=== PATIENT | male | born 1980 | race Caucasian/White ===

== ENCOUNTER 2022-10-20 08:01 | Outpatient (REF) | payer OTHER, SELFPAY ==
[2022-10-20 08:14] LABS: MANUAL DIFF FLAG NO
[2022-10-20 08:39] LABS: Basophils Percent Auto 0.4 % (0-2); Eosinophils Absolute Auto 0.2 X10*3/uL (0.0-0.4); Eosinophils Percent Auto 1.7 % (0-4); Hematocrit 46.4 % (42.0-52.0); Hemoglobin 15.7 g/dl (14.0-18.0); Imm Gran Abs Auto 0.04 X10*3/uL (0.00-0.03); Imm Gran Pct Auto 0.4 % (0.0-0.4); Lymphocytes Absolute Auto 3.2 X10*3/uL (1.2-4.9); Lymphocytes Percent Auto 32.4 % (20-40); Mean Corpuscular HGB Conc 33.8 g/dl (31.0-36.0); Mean Corpuscular Hemoglobin 28.4 pg (27.0-33.0); Mean Corpuscular Volume 84.1 fL (80.0-98.0); Mean Platelet Volume 9.3 fL (9.4-12.4); Monocytes Absolute Auto 0.5 X10*3/uL (0.1-1.2); Monocytes Percent Auto 4.9 % (2-11); Neutrophils Percent Auto 60.2 % (45-73); Platelet Count 410 X10*3/uL (160-400); Red Blood Count 5.52 X10*6/uL (4.60-5.80); Red Cell Distribution Width 12.6 % (11.0-16.0)
[2022-10-20 08:51] LABS: Hemoglobin A1c % > 14.0 %
[2022-10-20 09:26] LABS: TSH reflex Free T4 1.66 uIU/mL (0.32-4.0); Vitamin D 25-OH Total 17.2 ng/mL (>30)
[2022-10-20 09:34] LABS: Alanine Aminotransferase 27 U/L (0-40); Albumin Level 4.5 g/dL (3.5-5.0); Alkaline Phosphatase 143 U/L (39-117); Anion Gap 20 (12-20); Aspartate Amino Transferase 24 U/L (5-37); Bilirubin Total 0.5 mg/dL (0.0-1.0); Blood Urea Nitrogen 20 mg/dL (9-16); Calcium 9.6 mg/dL (8.4-10.2); Carbon Dioxide 23 mmol/L (22-29); Chloride 97 mmol/L (96-108); Cholesterol 250 mg/dL; Estimated Glomerular Filt Rate > 60; Glucose Random 402 mg/dL (60-115); HDL Cholesterol 28 mg/dL; Potassium 4.7 mmol/L (3.3-5.1); Sodium 135 mmol/L (135-145); Total Protein 7.5 g/dL (6.5-8.0); Triglycerides 609 mg/dL
== END 2022-10-20 08:02 | disposition home or self-care (01) ==
LOC: HO.LAB 08:01
PROVIDERS: PCP Internal Medicine; Visit Provider Nurse Practitioner Family
DX: Z13.21 Encounter for screening for nutritional disorder (principal); Z13.29 Encounter for screening for other suspected endocrine disorder; Z13.0 Encounter for screening for diseases of the blood and blood-forming organs and certain disorders involving the immune mechanism; Z13.220 Encounter for screening for lipoid disorders; E55.9 Vitamin D deficiency, unspecified; E11.9 Type 2 diabetes mellitus without complications
CPT/HCPCS: 36415; 80053; 80061; 82306; 83036; 84443; 85025

== ENCOUNTER 2022-10-20 10:34 | Emergency (ER) | payer OTHER, SELFPAY ==
[2022-10-20 10:48] VITALS: BP 118/81; PULSE 90; RESP 18; TEMP 36.3; O2SAT 96; BMI 26.1
[2022-10-20 11:39] LABS: Glucose, Whole Blood 541 mg/dL (60-115)
[2022-10-20 11:48] LABS: Appearance Urine Clear; Color Urine Yellow; Glucose Urine UA >=1000 mg/dL (Negative); Leukocyte Esterase Urine Negative (Negative); Nitrite Urine Negative (Negative); PH 6.5 (5.0-9.0); Specific Gravity - Urine >= 1.030 (1.005-1.025); UMIC TRIGGER UACC YES; Urine Blood Negative (Negative); Urine Ketones 15 mg/dL (Negative); Urine Protein Negative (Neg-Trace)
[2022-10-20 12:07] LABS: Bacteria Urine None Seen (None Seen); Hyaline Casts Urine 0-2 /LPF (0-2); RBC Urine 0-2 /HPF (0-2); Squamous Epithelial Cell Urine 0-2 /HPF (0-2); WBC Urine 0-5 /HPF (0-5)
--- NOTE | 2022-10-20 13:31 | ED.GENADULT ---
HPI - General Adult General Chief complaint: General Medical Stated complaint: HBS Time Seen by Provider: 10/20/22 13:31 Source: patient Mode of arrival: ambulatory Limitations: no limitations History of Present Illness HPI narrative: Patient is a 42 year old assigned male at with no reported medical history presenting to the emergency department today by his PCP for evaluation of elevated blood sugar. Patient states that he was seen by his PCP who checked his sugar and said it was high and he recommended the patient come to the hospital to be evaluated. Patient denies any dizziness, lightheadedness, abdominal pain, nausea, vomiting, fever, chills, blurry vision, double vision, loss of vision, chest pain, difficulty breathing, shortness of breath, back pain, night sweats, pain with urination, increased urinary frequency, increased urinary urgency, blood in his urine or stool, syncope or a near syncopal episode, recent trauma or falls, bowel incontinence, bladder incontinence, bowel retention, bladder retention, or any other complaints at this time. Severity: mild Relieving factors: none Exacerbating factors: none Associated symptoms: denies other symptoms Treatments prior to arrival: none Related Data Previous Rx's Medication Instructions Recorded blood sugar diagnostic #100 ea 10/20/22 blood-glucose meter #1 ea 10/20/22 lancets (Accu-Chek Softclix #100 ea 10/20/22 Lancets) metformin 500 mg tablet 500 mg PO DAILY #30 tabs 10/20/22 Allergies Allergy/AdvReac Type Severity Reaction Status Date / Time No Known Allergies Allergy Verified 10/20/22 08:04 [No Known Allergies*] Review of Systems Constitutional: Constitutional: Reports no additional constitutional complaints, Denies chills, Denies fever(s) and Denies night sweats Eyes: Eyes: Reports no additional eye complaints, Denies blurry vision, Denies change in vision, Denies diplopia, Denies eye discharge, Denies loss of vision and Denies eye pain ENT: Denies dizziness Cardiovascular: Cardiovascular: Reports no additional cardiovascular complaints, Denies chest pain, Denies lightheadedness, Denies Loss of Consciousness and Denies dyspnea Respiratory: Respiratory: Reports no additional respiratory complaints and Denies dyspnea Gastrointestinal: Gastrointestinal: Reports no additional gastrointestinal complaints, Denies abdominal pain, Denies melena, Denies hematochezia, Denies change in bowel habits and Denies change in stool character Genitourinary: Genitourinary: Reports no additional male genitourinary complaints, Denies hematuria, Denies oliguria, Denies difficulty urinating, Denies dysuria, Denies urinary frequency, Denies urinary hesitancy, Denies urinary incontinence and Denies urinary urgency Musculoskeletal: Musculoskeletal: Reports no additional musculoskeletal complaints, Denies numbness and Denies tingling Neurologic: Denies dizziness, Denies loss of vision, Denies numbness and Denies tingling Psychiatric: Psychiatric: Reports no additional psychiatric complaints Endocrine: Endocrine: Reports no additional endocrine complaints Hematologic/Lymphatic: Hematologic/Lymphatic: Reports no additional hematologic/lymphatic complaints Allergic/Immunologic: Allergic/Immunologic: Reports no additional allergic/immunologic complaints PMFSH Past Medical History Attestation statement: The following information was validated with the patient. Source: old records reviewed, obtained from family (patient's ) and nursing notes reviewed Medical History Diabetes Right inguinal hernia Vitamin D deficiency Weight loss Surgical History H/O umbilical hernia repair History of hernia surgery Family History Family History Mother Asthma Diabetes Father Cancer Diabetes Social History Social History Housing: Apartment Alcohol intake: current Alcohol intake frequency: holidays/special occasions only Alcohol type: beer Patient Tobacco Use Status: Former Tobacco user Tobacco use type: Cigarette e-Cigarette/Vaping Use: Never Used Second Hand Smoke Exposure: No Substance Use Type: Marijuana Advance Directives: No Advance Directives Information Provided: Yes service: No Current occupational status: employed Current occupational exposures/hazards: No Cognitive needs: No Hearing needs: No Vision needs: Yes Physical Exam ED Vital Signs: Vital Signs - 24 hr 10/20/22 10:48 10/20/22 14:57 Temperature 97.4 F 98.7 F Pulse Rate 90 86 Respiratory Rate 18 13 Blood Pressure 118/81 125/82 Pulse Oximetry 96 96 Oxygen Delivery Method Room Air Room Air BMI result Body Mass Index 26.1 Const General: cooperative, no acute distress, alert and awake Nutritional Appearance: well nourished Orientation/consciousness: patient oriented x3 Limitations: no limitations HENMT Head: Yes normal to inspection and Yes atraumatic Ears: hearing grossly normal bilaterally and external ears normal General nose exam: Normal external nose present, no nasal discharge noted and no epistaxis Face and sinus: Yes normal facial exam, No abrasion and No laceration Mouth: Normal oral and palatal mucosa present, no drooling and no muffled voice Eyes General: appearance normal, both eyes and all related structures Periorbital: periorbital findings normal Eyelids: Yes eyelids normal Conjunctivae: conjunctivae normal Pupils: Equal, round and reactive pupils present EOM: EOMs intact bilaterally Neck Neck: Yes normal visual inspection, Yes full ROM and Yes no lymphadenopathy Chest Chest palpation & inspection: normal inspection of the chest Resp Effort & Inspection: normal respiratory effort and able to speak in complete sentences Auscultation: clear to auscultation bilaterally Cardio Rate: regular rate Rhythm: regular rhythm GI Inspection: Yes normal to inspection Palpation (GI): Soft to palpation, not firm, nontender, no guarding and not rigid Neuro General: patient oriented x3 and moves all extremities Cranial nerves: Yes Equal, round and reactive pupils present Cognition (Neuro): normal cognition Motor exam (neuro): 5/5 motor strength present throughout Sensory Exam: Normal double simultaneous stimulation for sensation Coordination: [id number] test normal Extrem General: Yes normal to inspection, Yes full ROM and Yes capillary refill normal Psych Appearance: grossly normal Mental Status: mental status grossly normal Affect: normal affect Attitude: cooperative Thought process: Normal thought process present Thought content: Normal thought content present Insight: Good insight present (Psych) Medications Administered Discontinued Medications Generic Name Dose Route Start Last Admin Trade Name Claudette PRN Reason Stop Dose Admin Sodium Chloride 1,000 mls @ 999 mls/hr 10/20/22 11:00 10/20/22 14:49 Ns IVCONT 10/20/22 12:00 Infused .Q1H1M EMILY Infusion Sodium Chloride 1,000 mls @ 999 mls/hr 10/20/22 13:45 10/20/22 15:39 Ns IV 10/20/22 14:45 Infused .Q1H1M EMILY Infusion Insulin Human Regular 5 unit 10/20/22 15:34 10/20/22 15:44 Insulin Regular, Human 100 Unit/Ml 3 Ml Vial IVPUSH 10/20/22 15:35 5 unit ONCE ONE Administration Medical Decision Making Medical Decision Making [facility] Narrative: Patient is a 42 year old assigned male at with no reported medical history presenting to the emergency department today for evaluation of elevated glucose. Patient's physical exam was unremarkable. Patient's blood work showed an elevated blood sugar of 541. Patient's urine showed no acute process. Patient was given 2 liters of fluid and 5 units of insulin which brought his sugar down to 321. Patient's clinical presentation is consistent with new onset diabetes. Patient is not in DKA. I explained my physical exam findings as well as all test results to the patient and the patient's . I answered all questions asked by the patient and the patient's . I stressed the importance of the patient taking his medication as prescribed. I stressed the importance of the patient following up with his primary care provider and an housekeeping and laundry team leader. I stressed the importance of the patient returning to the emergency department immediately if his symptoms were to worsen or if he were to develop any dizziness, shortness of breath, difficulty breathing, chest pain, blurry vision, loss of vision, nausea, vomiting, abdominal pain, fever, chills, back pain, or any other complaints. Patient and the patient's verbalized agreement and understanding with this treatment plan and discharge. Differential Diagnosis Differential Diagnoses: The differential diagnosis associated with the presentation includes diabetes Lab Data [facility] Lab Attestation statement: I reviewed the patient's lab results. Labs: Lab Results 10/20/22 10/20/22 10/20/22 Range/Units 11:33 11:39 15:31 POC Glucose 541 H* 433 H* (60-115) mg/dL Urine Color Yellow Urine Appearance Clear Urine pH 6.5 (5.0-9.0) Ur Specific [place] >= 1.030 H (1.005-1.025) Urine Protein Negative (Neg-Trace) mg/dL Urine Glucose (UA) >=1000 H (Negative) mg/dL Urine Ketones 15 (Negative) mg/dL Urine Blood Negative (Negative) Urine Nitrite Negative (Negative) Ur Leukocyte Esterase Negative (Negative) Urine RBC 0-2 (0-2) /HPF Urine WBC 0-5 (0-5) /HPF Ur Squamous Epith Cells 0-2 (0-2) /HPF Urine Bacteria None Seen (None Seen) Hyaline Casts 0-2 (0-2) /LPF 10/20/22 Range/Units 16:26 POC Glucose 321 H (60-115) mg/dL Urine Color Urine Appearance Urine pH (5.0-9.0) Ur Specific [place] (1.005-1.025) Urine Protein (Neg-Trace) mg/dL Urine Glucose (UA) (Negative) mg/dL Urine Ketones (Negative) mg/dL Urine Blood (Negative) Urine Nitrite (Negative) Ur Leukocyte Esterase (Negative) Urine RBC (0-2) /HPF Urine WBC (0-5) /HPF Ur Squamous Epith Cells (0-2) /HPF Urine Bacteria (None Seen) Hyaline Casts (0-2) /LPF Independent Historian Clinical information obtained from an independent historian. History obtained from or confirmed by: Spouse () Critical Care Time Critical Care Time Critical Care Time: Yes Total Critical Care Time: 30 Attestation: I spent 30 minutes of Critical Care Time with this patient. This does not include time spent on separately reported billable procedures. Discharge Plan Discharge Clinical Impression: Diabetes Patient Disposition: Home, Self-Care Instructions: Type 2 Diabetes in Adults: New Diagnosis (ED), Type 2 Diabetes Management for Adults (ED) Additional Instructions: Follow up with your primary care provider. Return to the emergency department immediately if your symptoms worsen or if you develop any dizziness, shortness of breath, difficulty breathing, chest pain, blurry vision, loss of vision, nausea, vomiting, abdominal pain, fever, chills, back pain, or any other complaints. Prescriptions: New metformin 500 mg tablet 500 mg PO DAILY Qty: 30 0RF (DME) blood-glucose meter Kit See Rx Instructions .Route Qty: 1 0RF Rx Instructions: As directed (DME) blood sugar diagnostic Strip See Rx Instructions .Route Qty: 100 0RF Rx Instructions: As directed (DME) lancets [Accu-Chek Softclix Lancets] Misc See Rx Instructions .Route Qty: 100 0RF Rx Instructions: As directed Referrals: Joaquin Huang MD [Physician] - (Call to establish and follow up with an housekeeping and laundry team leader.) Kayli Lainez FNP [Primary Care Provider] - Stand Alone Forms: Work/School Release Interventions: ED Discharge Assessment Last Done: 10/20/22 17:04 Discharge Date/Time: 10/20/22 17:05 Print Language: Italian
[2022-10-20] MEDS: 0.9 % Sodium Chloride 1,000 ML 999 ML IVCONT (13:51)
--- NOTE | 2022-10-20 14:04 | PC.NURSE ---
patient alert, oriented x4. ambulating independently with strong steady gait. able to make needs known. call perry within reach. will CTM
[2022-10-20] MEDS: 0.9 % Sodium Chloride 1,000 ML 999 ML IV (14:49)
[2022-10-20 14:57] VITALS: BP 125/82; PULSE 86; RESP 13; TEMP 37.1; O2SAT 96
[2022-10-20 15:35] LABS: Glucose, Whole Blood 433 mg/dL (60-115)
[2022-10-20] MEDS: Insulin Regular, Human 100 UNIT/ML 3 ML VIAL IVPUSH (15:44)
[2022-10-20 16:30] LABS: Glucose, Whole Blood 321 mg/dL (60-115)
== END 2022-10-20 17:05 | disposition home or self-care (01) ==
PROVIDERS: Physician Assistant; Emergency Provider Emergency Medicine Emergency Medical Services; PCP Nurse Practitioner Family
DX: E11.9 Type 2 diabetes mellitus without complications (principal); Z87.891 Personal history of nicotine dependence; F12.90 Cannabis use, unspecified, uncomplicated
CPT/HCPCS: 81001; 82947; 96361; 96374; 99284

== ENCOUNTER 2022-11-04 08:50 | Outpatient (REF) | payer OTHER, SELFPAY ==
[2022-11-04 10:36] LABS: Hemoglobin A1c % > 14.0 %
[2022-11-04 11:26] LABS: Cholesterol 233 mg/dL; HDL Cholesterol 33 mg/dL; LDL Cholesterol Calculated 148 mg/dl; Triglycerides 261 mg/dL
[2022-11-04 11:29] LABS: Vitamin D 25-OH Total 20.1 ng/mL (>30)
== END 2022-11-04 08:51 | disposition home or self-care (01) ==
LOC: HO.LAB 08:50
PROVIDERS: Nurse Practitioner Family; Visit Provider Internal Medicine
DX: Z13.220 Encounter for screening for lipoid disorders (principal); E55.9 Vitamin D deficiency, unspecified; E11.9 Type 2 diabetes mellitus without complications
CPT/HCPCS: 36415; 80061; 82306; 83036

== ENCOUNTER → 2022-11-24 10:59 | Outpatient (BNVA) | payer OTHER, SELFPAY | PROVIDERS: PCP Internal Medicine; Visit Provider Dietitian, Registered | DX: E11.9 Type 2 diabetes mellitus without complications (principal); Z79.84 Long term (current) use of oral hypoglycemic drugs | CPT/HCPCS: 97802 ==

== ENCOUNTER → 2023-01-11 12:25 | Outpatient (BNVA) | payer OTHER, SELFPAY | PROVIDERS: PCP Internal Medicine; Visit Provider Internal Medicine Endocrinology, Diabetes & Metabolism | DX: E11.9 Type 2 diabetes mellitus without complications (principal); Z79.4 Long term (current) use of insulin | CPT/HCPCS: 82947; 99202 ==

== ENCOUNTER 2023-01-12 16:10 | Outpatient (REF) | payer OTHER, SELFPAY ==
[2023-01-12 17:19] LABS: Microalbum/Creatinine Ratio Ur 6.2 ug/mg cr
[2023-01-18 19:24] LABS: Glutamic acid decarboxylase Ab >250 IU/mL (<5)
== END 2023-01-12 16:11 | disposition home or self-care (01) ==
LOC: HO.LAB 16:10
PROVIDERS: PCP Internal Medicine; Visit Provider Internal Medicine Endocrinology, Diabetes & Metabolism
DX: E11.9 Type 2 diabetes mellitus without complications (principal)
CPT/HCPCS: 36415; 82043; 86341

== ENCOUNTER → 2023-01-18 09:18 | Outpatient (BNVA) | payer OTHER, SELFPAY | PROVIDERS: PCP Internal Medicine; Visit Provider Dietitian, Registered | DX: E11.9 Type 2 diabetes mellitus without complications (principal); Z71.3 Dietary counseling and surveillance | CPT/HCPCS: 97803 ==

== ENCOUNTER → 2023-01-28 15:19 | Outpatient (BNVA) | payer OTHER, SELFPAY | PROVIDERS: PCP Internal Medicine; Visit Provider Nurse Practitioner Family | DX: Z12.11 Encounter for screening for malignant neoplasm of colon (principal); Z86.010 Personal history of colon polyps; Z80.0 Family history of malignant neoplasm of digestive organs; Z79.4 Long term (current) use of insulin | CPT/HCPCS: 99202 ==

== ENCOUNTER → 2023-02-18 10:15 | Outpatient (BNVA) | payer OTHER, SELFPAY | PROVIDERS: PCP Internal Medicine; Referring Provider Nurse Practitioner Family; Visit Provider Surgery | DX: K40.90 Unilateral inguinal hernia, without obstruction or gangrene, not specified as recurrent (principal) | CPT/HCPCS: 99202 ==

== ENCOUNTER 2023-02-21 09:45 | Day surgery (SDC) | payer OTHER, SELFPAY ==
[2023-02-17 11:18] VITALS: BMI 29.1
--- NOTE | 2023-02-17 13:32 | HO.ANESPROP2 ---
Documented by User: Gloria Chen NP 02/17/23 13:39 HPI - Anesthesia Eval Consult details Narrative: 42yo M for Colonoscopy PMFSH Active Problems Active Problems: All Active Problems (Updated 02/04/23 @ 08:39 by SAHRA Middleton) Hyperlipidemia (Acute) Cutaneous abscess of head excluding face (Acute) Diabetes (Acute) Vitamin D deficiency (Acute) Weight loss (Acute) Right inguinal hernia (Acute) Past Medical History Medical History Cutaneous abscess of head excluding face Diabetes Elevated cholesterol Inguinal hernia Vitamin D deficiency Weight loss Family History Family History Mother Asthma Diabetes Father Cancer Diabetes Surgical History Surgical History H/O umbilical hernia repair Social History Social History Housing: Apartment Are you a primary care trainer to a significant other at home: Yes Do you presently have visiting nurse or other home services: No Alcohol intake: current Alcohol intake frequency: holidays/special occasions only Alcohol type: beer Patient Tobacco Use Status: Former Tobacco user Quit Date: 2003 Tobacco use type: Cigarette e-Cigarette/Vaping Use: Never Used Second Hand Smoke Exposure: No Use of substances other than those prescribed or required for medical reasons: Yes Substance Use Type: Marijuana Substance Use Frequency: Daily Are you DNR?: No Advance Directives: No Advance Directives Information Provided: Yes Recently lost weight without trying: No Nutrition Risks: No Nutritional Risk Poor oral hygiene: No service: No Current occupational status: employed Current occupational exposures/hazards: No Cognitive needs: No Hearing needs: No Vision needs: Yes Meds Allergies Allergy/AdvReac Type Severity Reaction Status Date / Time No Known Allergies Allergy Verified 02/21/23 10:43 [No Known Allergies*] Home Medications Medication Instructions Recorded Confirmed Last Taken Type metformin 500 mg tablet 500 mg PO BID 01/28/23 02/21/23 Unknown History atorvastatin 10 mg tablet 10 mg PO DAILY 02/18/23 02/21/23 Unknown History insulin glargine 100 unit/mL 10 unit subcut QPM 02/18/23 02/21/23 Unknown History subcutaneous solution (Lantus U-100 Insulin) Exam Exam Date and Time: February 17, 2023 1332 Height,Weight and Vital Signs: Height 5 ft 9 in Weight 89.358 kg Pertinent Lab Results Pertinent Lab Results: Laboratory Tests 10/20/22 10/20/22 08:12 08:12 WBC 10.0 Hgb 15.7 Hct 46.4 Plt Count 410 H Sodium 135 Potassium 4.7 Chloride 97 Carbon Dioxide 23 BUN 20 H Creatinine 1.19 Assessment and Plan Assessment Anesthesia Assessment: Chart Reviewed Documented by User: Mau Lind MD 02/21/23 11:05 [facility] Past Medical History Medical History Cutaneous abscess of head excluding face Diabetes Elevated cholesterol Inguinal hernia Vitamin D deficiency Weight loss Family History Family History Mother Asthma Diabetes Father Cancer Diabetes Family history of problems with anesthesia: No Surgical History Surgical History H/O umbilical hernia repair History of Problems with Anesthesia: No Social History Social History Housing: Apartment Are you a primary care trainer to a significant other at home: Yes Do you presently have visiting nurse or other home services: No Alcohol intake: current Alcohol intake frequency: holidays/special occasions only Alcohol type: beer Patient Tobacco Use Status: Former Tobacco user Quit Date: 2003 Tobacco use type: Cigarette e-Cigarette/Vaping Use: Never Used Second Hand Smoke Exposure: No Use of substances other than those prescribed or required for medical reasons: Yes Substance Use Type: Marijuana Substance Use Frequency: Daily Are you DNR?: No Advance Directives: No Advance Directives Information Provided: Yes Recently lost weight without trying: No Nutrition Risks: No Nutritional Risk Poor oral hygiene: No service: No Current occupational status: employed Current occupational exposures/hazards: No Cognitive needs: No Hearing needs: No Vision needs: Yes Meds Allergies Allergy/AdvReac Type Severity Reaction Status Date / Time No Known Allergies Allergy Verified 02/21/23 10:43 [No Known Allergies*] Home Medications Medication Instructions Recorded Confirmed Last Taken Type metformin 500 mg tablet 500 mg PO BID 01/28/23 02/21/23 Unknown History atorvastatin 10 mg tablet 10 mg PO DAILY 02/18/23 02/21/23 Unknown History insulin glargine 100 unit/mL 10 unit subcut QPM 02/18/23 02/21/23 Unknown History subcutaneous solution (Lantus U-100 Insulin) Exam Airway Mallampati Class: II TM Dist: >3cm Neck ROM: Full Assessment and Plan Assessment Anesthesia Assessment: Anesthesia Plan Discussed Final Anesthetic Review Family History of Problems with Anesthesia: No History of Problems with Anesthesia: No NPO: Yes ASA Class: II Final Preanesthetic Review: No Changes in Pt Med Stat, Meds/Allgs Chart Reviewed, Consent Obtained/Reviewed and Anes Risks/Benef Reviewed Patient Risk: Intermediate Procedure Risk: Low Anesthetic Plan Anesthetic Plan: MAC: Disposition: Standard PACU
[2023-02-21 10:45] VITALS: BMI 27.5
[2023-02-21 10:56] VITALS: BP 135/95; PULSE 69; RESP 15; TEMP 36.3; O2SAT 96
--- NOTE | 2023-02-21 11:59 | MHC.SHP ---
Pre-Procedural Eval Section A Date of Service: 02/21/23 The patient is an INPATIENT: No The History & Physical has been completed within 30 days and I have reviewed it.: No Section B Chief Complaint: SCREENING, HX OF COLON POLYPS Relevant Family History (Specify if Yes): Yes Relevant Social History: Tobacco Use (former smoker) Present Medications: see Short Stay Collaborative assessment Medical History: Significant History (Cutaneous abscess of head excluding face Diabetes Right inguinal hernia Vitamin D deficiency Weight loss) History of Previous Operations: Relevant previous surgery/procedure and date(s) (H/O umbilical hernia repair History of hernia surgery) Allergies: Allergies Allergy/AdvReac Type Severity Reaction Status Date / Time No Known Allergies Allergy Verified 02/21/23 10:43 [No Known Allergies*] Review of Systems Sugical H&P ROS: Negative: Constitution, Cardiovascular, Respiratory and Gastrointestinal Exam Surgical H&P Exam: Normal: Heart, Normal: Lungs, Normal: Extremities and Normal: Abdomen Plan Diagnosis/Plan: Unchanged I have reviewed the history and physical and performed a pertinent physical examination on my patient. No changes have occurred unless specified. Time Spent With Patient Time: Total time managing care of this patient today ____ minutes.
--- NOTE | 2023-02-21 12:25 | W.PM.OPN ---
Operative Note Operative Note Date of Service: 02/21/23 Narrative: COLONOSCOPY TILL CECUM WITH BIOPSIES AND SNARE POLYPECTOMY Pre-op diagnosis: Colon cancer screening, history of colon polyps Post-op diagnosis:? Colon polyps, diverticulosis, hemorrhoids Endoscopist:? Roma Novak MD Anesthesia:?MAC Consent: Indications for the procedure and potential complications of bleeding, perforation, reaction to medications and missed diagnosis were discussed with the patient and informed consent was obtained. Instrument: Olympus PCF H 190 L variable stiffness pediatric colonoscope Monitoring: Vital signs and clinical assessment, intermittent blood pressure monitoring, continuous EKG monitoring, Pulse oximetry and Carbon Dioxide monitoring were done throughout the procedure. Please see anesthesia flowsheet. Colon withdrawl time was 27 minutes. Procedure: The patient was placed in the left lateral decubitis position and pre-procedure medications were administered. After a digital rectal examination of the ano-rectum, the video colonoscope was inserted into the rectum and advanced through the colon to the cecum. The colonoscope was slowly withdrawn in a retrograde panoramic fashion and the colon mucosa was carefully examined including a retroflexed view of the rectum. Findings and interventions are described below. Procedure Difficulty: Without difficulty Findings: Terminal Ileum: Not evaluated Cecum: Normal Ascending Colon: Normal Transverse Colon: Normal Descending Colon: Normal Sigmoid Colon: Two 12-15 mm sessile polyp/? polyp stalks at past polypectomy sites from 18 to 20 cms - removed with a hot snare. Moderate diverticulosis Rectum: A 4-5 mm diminutive appearing polyp - removed with a cold biopsy. Ano-rectum: Small internal hemorrhoids Colon preparation: Good in the right and transverse colon and fair in the left colon despite copious irrigation due to adherent stools which could not be suctioned (pt admitted to taking chicken noodle soup around 6 pm yesterday Impression and Post Procedure Diagnosis: Colonoscopy Findings: Two medium sized and one small polyps removed Moderate diverticulosis seen in the sigmoid colon Small hemorrhoids on retroflexed exam. Plan: I will send a letter with pathology results Repeat Colonoscopy interval based on path results - in 3 years if polyps are adenomatous and due to fair prep in the left colon. Above findings were reviewed with the patient and colon polyps and diverticulosis handouts were given in the discharge area
[2023-02-21 13:17] VITALS: BP 125/80; PULSE 85; RESP 16; TEMP 36.5; O2SAT 98
[2023-02-21 13:32] VITALS: BP 139/91; PULSE 78; RESP 14; TEMP 36.5; O2SAT 99
[2023-02-21 13:47] VITALS: BP 142/96; PULSE 76; RESP 16; TEMP 36.2; O2SAT 98
== END 2023-02-21 14:24 | disposition home or self-care (01) ==
PROVIDERS: PCP Internal Medicine; Visit Provider Internal Medicine Gastroenterology
PROC: 0DJD8ZZ Inspection of Lower Intestinal Tract, Via Natural or Artificial Opening Endoscopic (ICD-10-PCS; CPT 45378; principal; 2023-02-21 12:00)
DX: Z12.11 Encounter for screening for malignant neoplasm of colon (principal); Z86.010 Personal history of colon polyps; Z80.0 Family history of malignant neoplasm of digestive organs; K63.5 Polyp of colon; K62.1 Rectal polyp; K57.30 Diverticulosis of large intestine without perforation or abscess without bleeding; K64.8 Other hemorrhoids; E11.9 Type 2 diabetes mellitus without complications; E55.9 Vitamin D deficiency, unspecified; L02.811 Cutaneous abscess of head [any part, except face]; R63.4 Abnormal weight loss; Z68.29 Body mass index [BMI] 29.0-29.9, adult; Z79.4 Long term (current) use of insulin; Z79.899 Other long term (current) drug therapy; F12.90 Cannabis use, unspecified, uncomplicated; Z87.891 Personal history of nicotine dependence
CPT/HCPCS: 45385; 45380; 82947; 88305

== ENCOUNTER 2023-03-02 08:13 | Outpatient (REF) | payer OTHER, SELFPAY ==
--- NOTE | ~2023-03-02 | CT_ITS ---
EXAMINATION: CT ABDOMEN AND PELVIS WITHOUT CONTRAST CLINICAL INFORMATION: Unilateral inguinal hernia. COMPARISON: CT abdomen and pelvis 10/10/2018. TECHNIQUE: Multidetector volumetric imaging was performed from the superior aspect of the liver through the pubic symphysis. Sagittal and coronal reformatted images were obtained on the technologist's workstation. This CT examination was performed using dose optimization techniques as appropriate, variously including the following: *Automated exposure control *Adjustment of mA and/or kV according to patient size (this includes techniques or standardized protocols for targeted exams where dose is matched to indication/reason for exam; i.e. extremities or head) *Use of iterative reconstruction technique DLP: 554 mGy-cm FINDINGS: LUNG BASES: The lung bases are clear. Heart size is normal. LIVER, GALLBLADDER, AND BILIARY TREE: The liver is normal in size, shape, and attenuation. 2 calcified complex lesions are seen in the right hepatic lobe adjacent to diaphragm. They measure 2.1 cm and 9 mm, stable. No new lesions are seen. The gallbladder is contracted with no radiopaque gallstones or wall thickening. PANCREAS: Unremarkable. SPLEEN: Unremarkable. ADRENAL GLANDS: Unremarkable. KIDNEYS AND URETERS: There is lower pole right cortical defect/thick scar with dystrophic calcification. There is a small radiopaque 7 mm stone. The stone appears slightly larger compared to previous exam. No additional radiopaque calculi seen. There is a focal hypodensity in the lower pole left kidney. No caliectasis or hydronephrosis seen. BLADDER: Unremarkable. GASTROINTESTINAL TRACT: Scattered stool and gas is seen in the colon without significant distention. The small bowel loops are normal caliber. Appendix is normal caliber. No free air or free fluid seen. There is no inflammatory process. ABDOMINAL WALL: There is a prominent right inguinal canal containing fat. A small umbilical hernia containing fat is noted. LYMPH NODES: Normal. VASCULAR: Unremarkable. PELVIC VISCERA: Prostate gland is normal. Small shotty lymph nodes are seen in bilateral inguinal region. Largest left inguinal lymph node measures 1.2 cm. OSSEOUS STRUCTURES: Mild facet joint arthropathy seen at L3-L4 disc level. No aggressive lytic or sclerotic process. CT/CT abdomen pelvis wo IV con IMPRESSION: 1. Mild constipation. No obstruction seen. 2. There is a 7 mm radiopaque stone in the lower pole right kidney slightly larger compared to previous study. There is no caliectasis or hydronephrosis. There is a cortical scar with calcification lower pole right kidney. 3. Complex calcified lesions in the right hepatic lobe are stable compared to previous CT 10/10/2018. 4. Prominent right inguinal canal containing fat. Fleischner guidelines were followed.
== END 2023-03-02 08:14 | disposition home or self-care (01) ==
LOC: HO.CT 08:13
PROVIDERS: PCP Internal Medicine; Visit Provider Nurse Practitioner Family
DX: K40.90 Unilateral inguinal hernia, without obstruction or gangrene, not specified as recurrent (principal)
CPT/HCPCS: 74176

== ENCOUNTER 2023-03-03 09:50 | Outpatient (AMB) | payer OTHER, SELFPAY ==
--- NOTE | 2023-03-03 11:11 | MHC.AMDMED ---
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 Accompanied by: Self / Same As Patient Allergies No Known Allergies [No Known Allergies*] Allergy (Verified 02/21/23 10:43) HPI Comprehensive Diabetes Asmnt Most Recent Diabetes Results: Microalb/Creat Ratio 6.2 ug/mg cr 01/12/23 PFSH Medical History Cutaneous abscess of head excluding face Diabetes Elevated cholesterol Inguinal hernia Vitamin D deficiency Weight loss Surgical History (Updated 02/21/23 @ 11:38 by Marian Green RN) H/O umbilical hernia repair Hx of colonoscopy Family History Mother Asthma Diabetes Father Cancer Diabetes Social History Housing: Apartment Are you a primary spiritual care coordinator to a significant other at home: Yes Do you presently have visiting nurse or other home services: No Alcohol intake: current Alcohol intake frequency: holidays/special occasions only Alcohol type: beer Patient Tobacco Use Status: Former Tobacco user Quit Date: 2003 Tobacco use type: Cigarette e-Cigarette/Vaping Use: Never Used Second Hand Smoke Exposure: No Substance Use Type: Marijuana service: No Current occupational status: employed Current occupational exposures/hazards: No Cognitive needs: No Hearing needs: No Vision needs: Yes Assessment & Plan Assessment & Plan (1) Diabetes: Code(s): E11.9 - Type 2 diabetes mellitus without complications Plan: CGM Info Patient was diagnosed with type 2 diabetes in October 2022, put on metformin 1000 mg daily Lantus 10 units daily After visit with Dr. Huang in October 2022 [id number] were tested patient's results were positive This indicates patient has type 1 diabetes. Patient reports his glucose levels have been well controlled, his fasting level is 103-137 mg/dL, patient is testing 3 to 4 times a day patient does not have glucose over 179 mg/dL on last 2 weeks of download. Patient is currently not taking any basal insulin. Discussed with patient it is important for him to take at least 1 dose of Lantus once a day. Spoke with Dr. Huang, Dr. Huang agreed for patient to start 5 units of Lantus daily Partial patient also told to stop metformin. Reviewed with patient the importance of testing for ketones if glucose levels are above 250 mg/dL for 2 fingersticks in a row, unexplained. Instructions on how and when to test for ketones given to patient. Instructed Pt on what CGM can and can't do CGM Can: Give Pt minute by minute reading of glucose levels Displays glucose trend arrows that represents the direction glucose levels are fluctuating Give insight on decisions about how to dose insulin CGM cannot: Improve glucose control on its own Completely eliminate the need for all finger sticks Make dosing decision for you CGM is the reading of glucose in the interstitial fluid not actual blood glucose, finger sticks are still necessary when Pt's symptom?s do not match sensor reading and if sensors prompts Pt to do a fingerstick Patient? 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 Order faxed to [employer] for personal Dexcom G7 system Reviewed delay of CGM from fingersticks Reminded pt that if symptoms do not match sensor still needs to check fingersticks. Patient Instructions: Ketone instructions DIABETES PROBLEMS HOMECARE INSTRUCTIONS? for High Blood Sugar and When to Test for Ketones Hyperglycemia is the technical term for high blood glucose (blood sugar). High blood sugar happens when the body has too little insulin or when the body can't use insulin properly. What causes hyperglycemia? A number of things can cause hyperglycemia: If you have type 1, you may not have given yourself enough insulin. ? If you have type 2, your body may have enough insulin, but it is not as effective as it should be. You ate more than planned or exercised less than planned. You have stress from an illness, such as a cold or flu. You have other stress, such as family conflicts or school or dating problems. How to lower your blood sugar level. ? Take medications as directed by physician. ? Drink extra water or noncaffeinated, nonsugared drinks to prevented hydration. ? Exercise if you are not sick However, if your blood sugar is above 250 mg/dl, check your urine for ketones. If you have ketones, do not exercise Exercising when ketones are present may make your blood sugar level go even higher. You'll need to work with your doctor to find the safest way for you to lower your blood sugar level. Regularly check blood sugar or urine for sugar and acetone during illness. Diabetic ketoacidosis (DKA) Is serious condition that can lead to diabetic coma (passing out for a long time) or even . When your cells don't get the glucose they need for energy, your body begins to burn fat for energy, which produces ketones. Ketones are chemicals that the body creates when it breaks down fat to use for energy. The body does this when it doesn?t have enough insulin to use glucose, the body?s normal source of energy. When ketones build up in the blood, they make it more acidic. They are a warning sign that your diabetes is out of control or that you are getting sick. Symptoms of Diabetic Ketoacidosis (DKA) ? DKA usually develops slowly. But when vomiting occurs, this life-threatening condition can develop in a few hours. Early symptoms include the following: ? Thirst or a very dry mouth ? Frequent urination ? High blood glucose (blood sugar) levels ? High levels of ketones in the urine ? Then, other symptoms appear: ? Constantly feeling tired ? Dry or flushed skin ? Nausea, vomiting, or abdominal pain ? (Vomiting can be caused by many illnesses, not just ketoacidosis. If vomiting continues for more than 2 hours, contact your health care provider.) ? Difficulty breathing ? Fruity odor on breath ? A hard time paying attention, or confusion When should you test for ketones? It is advisable to check for ketones under the following conditions when: Your blood glucose is higher than 250mg/dl. Feeling nauseated, throwing up, or have pains in your abdominal region. Have a cold or flu. Have general body fatigue. Feel thirsty or have a very dry mouth. Have flushed skin. Have a fruity breath or a hard time breathing. You feel perplexed or in fog. How to Test Urine for Ketones You can detect ketones with a simple urine test using a test strip, similar to a blood testing strip. Ask your health care provider when and how you should test for ketones. Many experts advise to check your urine for ketones when your blood glucose is more than 250 mg/dl. When you are ill (when you have a cold or the flu, for example), check for ketones every 4 to 6 hours. And check every 4 to 6 hours when your blood sugar is more than 240 mg/dl. Also, check for ketones when you have any symptoms of DKA. How to lower your blood sugar level. ? Take medications as directed by physician. ? Drink extra water or noncaffeinated, nonsugared drinks to prevented hydration. ? Exercise if you are not sick However, if your blood sugar is above 250 mg/dl, check your urine for ketones. If you have ketones, do not exercise Exercising when ketones are present may make your blood sugar level go even higher. You'll need to work with your doctor to find the safest way for you to lower your blood sugar level. Regularly check blood sugar or urine for sugar and acetone during illness Patient will follow-up with Diabetes Education nurse in 6 weeks Coding Level of Care Code Est Pt Level 1 (64577) Diagnoses Diabetes E11.9
== END 2023-03-03 11:37 | disposition home or self-care (01) ==
PROVIDERS: PCP Internal Medicine; Visit Provider Registered Nurse Diabetes Educator
DX: E11.9 Type 2 diabetes mellitus without complications (principal)

== ENCOUNTER → 2023-03-03 09:50 | Outpatient (BNVA) | payer OTHER, SELFPAY | PROVIDERS: Visit Provider Registered Nurse Diabetes Educator | DX: E11.9 Type 2 diabetes mellitus without complications (principal); Z79.4 Long term (current) use of insulin | CPT/HCPCS: 99211 ==

== ENCOUNTER 2023-03-10 10:52 | Day surgery (SDC) | payer OTHER, SELFPAY ==
[2023-03-07 15:46] VITALS: BMI 29.1
--- NOTE | 2023-03-09 09:59 | P.CONAN_ITS ---
Documented by User: Gloria Chen NP 03/09/23 10:03 HPI - Anesthesia Eval Consult details Narrative: 42yo M for Right OPEN Hernia Repair Inguinal with mesh PMFSH Active Problems Active Problems: All Active Problems (Updated 03/08/23 @ 08:00 by Joaquin Huang MD) Uncontrolled type 1 diabetes mellitus with hyperglycemia, with long-term current use of insulin (Acute) Right inguinal hernia (Acute) Hyperlipidemia (Acute) Cutaneous abscess of head excluding face (Acute) Diabetes (Acute) Vitamin D deficiency (Acute) Weight loss (Acute) Past Medical History Medical History Cutaneous abscess of head excluding face Diabetes Elevated cholesterol Inguinal hernia Vitamin D deficiency Weight loss Family History Family History Mother Asthma Diabetes Father Cancer Diabetes Family history of problems with anesthesia: No Surgical History Surgical History H/O umbilical hernia repair Hx of colonoscopy History of Problems with Anesthesia: No Social History Social History (Updated 03/10/23 @ 11:54 by Nataly Nye MD) Housing: Apartment Are you a primary medical care administrator to a significant other at home: Yes Do you presently have visiting nurse or other home services: No Alcohol intake: current Alcohol intake frequency: holidays/special occasions only Alcohol type: beer Patient Tobacco Use Status: Former Tobacco user Quit Date: 7 yrs ago Tobacco use type: Cigarette e-Cigarette/Vaping Use: Never Used Second Hand Smoke Exposure: No Substance Use Type: Marijuana service: No Current occupational status: employed Current occupational exposures/hazards: No Cognitive needs: No Hearing needs: No Vision needs: Yes Meds Allergies Allergy/AdvReac Type Severity Reaction Status Date / Time No Known Allergies Allergy Verified 03/10/23 11:08 [No Known Allergies*] Home Medications Medication Instructions Recorded Confirmed Last Taken Type metformin 500 mg tablet 500 mg PO BID 01/28/23 03/10/23 Unknown History atorvastatin 10 mg tablet 10 mg PO DAILY 02/18/23 03/10/23 Unknown History insulin glargine 100 unit/mL 10 unit subcut QPM 02/18/23 03/10/23 Unknown History subcutaneous solution (Lantus U-100 Insulin) Exam Exam Date and Time: March 09, 2023 0959 Height,Weight and Vital Signs: Height 5 ft 9 in Weight 89.358 kg Pertinent Lab Results Pertinent Lab Results: Laboratory Tests 10/20/22 10/20/22 08:12 08:12 WBC 10.0 Hgb 15.7 Hct 46.4 Plt Count 410 H Sodium 135 Potassium 4.7 Chloride 97 Carbon Dioxide 23 BUN 20 H Creatinine 1.19 Assessment and Plan Assessment Anesthesia Assessment: Chart Reviewed Final Anesthetic Review Family History of Problems with Anesthesia: No History of Problems with Anesthesia: No Documented by User: Nataly Nye MD 03/10/23 11:54 HPI - Anesthesia Eval Consult details Narrative: 42yo M for Right Open Hernia Repair Inguinal with mesh PMFSH Active Problems Active Problems: All Active Problems (Updated 03/10/23 @ 11:05 by Nataly Nye MD) Uncontrolled type 1 diabetes mellitus with hyperglycemia, with long-term current use of insulin (Acute) Right inguinal hernia (Acute) Hyperlipidemia (Acute) Cutaneous abscess of head excluding face (Acute) Diabetes (Acute) Vitamin D deficiency (Acute) Weight loss (Acute) Past Medical History Medical History Cutaneous abscess of head excluding face Diabetes Elevated cholesterol Inguinal hernia Vitamin D deficiency Weight loss Family History Family History Mother Asthma Diabetes Father Cancer Diabetes Surgical History Surgical History H/O umbilical hernia repair Hx of colonoscopy Social History Social History (Updated 03/10/23 @ 11:54 by Nataly Nye MD) Housing: Apartment Are you a primary medical care administrator to a significant other at home: Yes Do you presently have visiting nurse or other home services: No Alcohol intake: current Alcohol intake frequency: holidays/special occasions only Alcohol type: beer Patient Tobacco Use Status: Former Tobacco user Quit Date: 7 yrs ago Tobacco use type: Cigarette e-Cigarette/Vaping Use: Never Used Second Hand Smoke Exposure: No Substance Use Type: Marijuana service: No Current occupational status: employed Current occupational exposures/hazards: No Cognitive needs: No Hearing needs: No Vision needs: Yes Meds Allergies Allergy/AdvReac Type Severity Reaction Status Date / Time No Known Allergies Allergy Verified 03/10/23 11:08 [No Known Allergies*] Home Medications Medication Instructions Recorded Confirmed Last Taken Type metformin 500 mg tablet 500 mg PO BID 01/28/23 03/10/23 Unknown History atorvastatin 10 mg tablet 10 mg PO DAILY 02/18/23 03/10/23 Unknown History insulin glargine 100 unit/mL 10 unit subcut QPM 02/18/23 03/10/23 Unknown H istory subcutaneous solution (Lantus U-100 Insulin) Exam Height,Weight and Vital Signs: Height 5 ft 9 in Weight 89.358 kg Vital Signs Temp Pulse Resp BP Pulse Ox O2 Del Method 03/10/23 11:36 97.4 F 82 15 137/93 H 95 Room Air Pertinent Lab Results Pertinent Lab Results: Laboratory Tests 10/20/22 10/20/22 08:12 08:12 WBC 10.0 Hgb 15.7 Hct 46.4 Plt Count 410 H Sodium 135 Potassium 4.7 Chloride 97 Carbon Dioxide 23 BUN 20 H Creatinine 1.19 Lab Results 03/10/23 Range/Units 11:45 POC Glucose 105 (60-115) mg/dL Airway Mallampati Class: I TM Dist: >3cm Neck ROM: Full Loose/Missing/Broken Teeth: No (Patient denies broken, loose, missing teeth) Heart: RRR Lungs: CTAB Assessment and Plan Assessment Anesthesia Assessment: Anesthesia Plan Discussed Final Anesthetic Review NPO: Yes ASA Class: II Final Preanesthetic Review: No Changes in Pt Med Stat, Meds/Allgs Chart Reviewed, Consent Obtained/Reviewed and Anes Risks/Benef Reviewed Patient Risk: Low Procedure Risk: Low Assessment/Block/Sedation in SS: Assess/Block/Sedation-SS Anesthetic Plan Anesthetic Plan: GA and MAC: Disposition: Standard PACU
--- NOTE | 2023-03-10 04:44 | MHC.SHP ---
Pre-Procedural Eval Section A Date of Service: 03/10/23 The patient is an INPATIENT: No Changes since office visit: No Cold of Flu in the past 2 weeks, No New Medical Problems, No Changes in Medication and No Patient answered all questions The History & Physical has been completed within 30 days and I have reviewed it.: Yes Section B Chief Complaint: Unilateral inguinal hernia, without obstruction or Allergies: Allergies Allergy/AdvReac Type Severity Reaction Status Date / Time No Known Allergies Allergy Verified 02/21/23 10:43 [No Known Allergies*] Plan I have reviewed the history and physical and performed a pertinent physical examination on my patient. No changes have occurred unless specified. Time Spent With Patient Time: Total time managing care of this patient today ____ minutes.
[2023-03-10 11:09] VITALS: BMI 28.1
[2023-03-10 11:36] VITALS: BP 137/93; PULSE 82; RESP 15; TEMP 36.3; O2SAT 95
[2023-03-10 11:49] LABS: Glucose, Whole Blood 105 mg/dL (60-115)
--- NOTE | 2023-03-10 12:56 | W.PM.OPN ---
Operative Note Operative Note Date of Service: 03/10/23 Narrative: Preoperative diagnosis: []Symptomatic right inguinal hernia Postop diagnosis: [] same Procedure [] right inguinal herniorrhaphy open technique with Bard mesh Surgeon: [] Leonard Weapons Mechanic: [] Type of Anesthesia: MAC Indication for surgery: [] large direct right inguinal hernia. No indirect hernia. Findings: [] patient was brought to the operating room, placed on operative table in supine position, after adequate level of MAC anesthesia was induced, the right groin was prepped and draped usual sterile fashion. Is also infiltrated with 0.5% Marcaine/ 1% lidocaine. A small right para inguinal incision was made, and carried down through skin, subcutaneous tissue, Jonny's fascia. External oblique fibers were opened in their direction with care to isolate and preserve the ilioinguinal nerve throughout the procedure. The spermatic cord was identified and retracted from the field. Exploration of the cord demonstrated No indirect hernia was demonstrated. Very large direct hernia was reduced. A Bard plug was placed in this defect, and the mesh sutured inferiorly to the inguinal ligament, and superiorly to the transversalis fascia using interrupted 2-0 Ethibond suture. At completion procedure, mesh was in good position with no gaps and no tension. Wound was irrigated , secured hemostasis, and closed in the following manner; external oblique fascia was reapproximated using running 2-0 Vicryl suture. Jonny fascia was closed using interrupted 3-0 Vicryl sutures. Interrupted inverted 3-0 Vicryl sutures followed by running subcuticular 4-0 Vicryl sutures were placed. Steri-Strips and sterile dressings were applied. Sponge, needle, and instrument counts were reported to be correct. Ipsilateral testicle was intrascrotal at completion of the procedure. EBL minimal
[2023-03-10 13:01] VITALS: BP 121/82; PULSE 85; RESP 14; TEMP 36.7; O2SAT 94
[2023-03-10 13:16] VITALS: BP 117/89; PULSE 75; RESP 17; O2SAT 93
[2023-03-10 13:31] VITALS: BP 114/87; PULSE 77; RESP 18; TEMP 36.1; O2SAT 94
== END 2023-03-10 13:46 | disposition home or self-care (01) ==
PROVIDERS: PCP Internal Medicine; Visit Provider Surgery
PROC: (CPT 49505; principal; 2023-03-10 13:20)
DX: K40.90 Unilateral inguinal hernia, without obstruction or gangrene, not specified as recurrent (principal); E10.65 Type 1 diabetes mellitus with hyperglycemia; Z79.4 Long term (current) use of insulin; E78.5 Hyperlipidemia, unspecified; E55.9 Vitamin D deficiency, unspecified; R63.4 Abnormal weight loss; Z68.29 Body mass index [BMI] 29.0-29.9, adult; Z79.899 Other long term (current) drug therapy; Z87.891 Personal history of nicotine dependence; F12.90 Cannabis use, unspecified, uncomplicated
CPT/HCPCS: 49505; 82947; C1781; J0690; J2250; J2405; J2795; J3010

== ENCOUNTER → 2023-03-10 10:52 | Outpatient (BNV) | payer OTHER, SELFPAY | PROVIDERS: PCP Internal Medicine; Visit Provider Surgery | DX: K40.90 Unilateral inguinal hernia, without obstruction or gangrene, not specified as recurrent (principal) | CPT/HCPCS: 49505 ==

== ENCOUNTER 2023-03-22 13:05 | Outpatient (AMB) | payer OTHER, SELFPAY ==
--- NOTE | 2023-03-22 13:07 | MHC.OFFVIS ---
Intake Vital Signs 03/22/23 13:10 Height 5 ft 8 in Weight 203 lb 4.259 oz BMI 30.9 BP 110/80 Blood Pressure Location Lt brachial Position Sitting Intake Visit Reasons: S/P RIH w/mesh Intake Note: Patient is seen in office for post op assessment post right inguinal hernia repair. 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 He is doing well. He has time diabetes abnormal bowel habits. He has minimal incisional discomfort. He is increasing his activity level. [facility] Medical History Cutaneous abscess of head excluding face Diabetes Elevated cholesterol Vitamin D deficiency Weight loss Surgical History (Updated 03/22/23 @ 13:17 by Tab Valle MD) H/O umbilical hernia repair Hx of colonoscopy Inguinal hernia Family History Mother Asthma Diabetes Father Cancer Diabetes Social History Housing: Apartment Are you a primary foster care case manager to a significant other at home: Yes Do you presently have visiting nurse or other home services: No Alcohol intake: current Alcohol intake frequency: holidays/special occasions only Alcohol type: beer Patient Tobacco Use Status: Former Tobacco user Quit Date: 7 yrs ago Tobacco use type: Cigarette e-Cigarette/Vaping Use: Never Used Second Hand Smoke Exposure: No Substance Use Type: Marijuana service: No Current occupational status: employed Current occupational exposures/hazards: No Cognitive needs: No Hearing needs: No Vision needs: Yes Physical Exam Vital Signs: Last Vital Signs BP 110/80 03/22/23 13:10 BMI result Body Mass Index 30.9 GI Other: Abdomen soft. Wound clean dry and intact. Assessment & Plan Assessment & Plan (1) Inguinal hernia: Comment: right groin--to be operated on in future Code(s): K40.90 - Unilateral inguinal hernia, without obstruction or gangrene, not specified as recurrent Plan: Patient has been given local instructions, and will see me p.r.n.. Will give him a work note to start in a few weeks time with 2 weeks light duty Coding Level of Care Code Global (49236) Diagnoses Inguinal hernia K40.90
[2023-03-22 13:10] VITALS: BP 110/80; BMI 30.9
== END 2023-03-22 13:17 | disposition home or self-care (01) ==
PROVIDERS: PCP Internal Medicine; Visit Provider Surgery
DX: K40.90 Unilateral inguinal hernia, without obstruction or gangrene, not specified as recurrent (principal)
CPT/HCPCS: 99024

== ENCOUNTER → 2023-03-22 13:05 | Outpatient (BNVA) | payer OTHER, SELFPAY | PROVIDERS: PCP Internal Medicine; Visit Provider Surgery ==

== ENCOUNTER 2023-04-04 17:24 | Emergency (ER) | payer OTHER, SELFPAY ==
--- NOTE | ~2023-04-04 | XR_ITS ---
EXAMINATION: XR SHOULDER, LEFT CLINICAL INFORMATION: Pain. COMPARISON: None available. TECHNIQUE: Two views of the left shoulder. FINDINGS: No acute fractures or subluxation. No abnormal soft tissue calcifications. Included portions of the left-sided ribs and left lung are within normal limits. XR/XR shoulder LT min 2V IMPRESSION: No acute fractures or subluxation. Further evaluation with CT or MR could be obtained if clinically indicated.
[2023-04-04 18:06] VITALS: BP 144/99; PULSE 90; RESP 16; TEMP 36.6; O2SAT 96; BMI 28.9
--- NOTE | 2023-04-04 18:11 | ED.GENADULT ---
HPI - General Adult General Chief complaint: Extremity Injury, Upper Stated complaint: L hand pain/numbness in fingers, no injury Time Seen by Provider: 04/04/23 18:41 Source: patient Mode of arrival: ambulatory Limitations: no limitations History of Present Illness HPI narrative: 42-year-old male history of diabetes presents to ED for left shoulder pain radiating down left hand with tingling/numbness for the past 5 days. Patient states pain on range of motion of shoulder. Patient denies any chest pain, shortness of breath, fever, chills, recent long travel, recent surgery, recent trauma, or any swelling/redness of upper extremity. Related Data Home Medications Medication Instructions Recorded Confirmed metformin 500 mg tablet 500 mg PO BID 01/28/23 03/22/23 atorvastatin 10 mg tablet 10 mg PO DAILY 02/18/23 03/22/23 insulin glargine 100 unit/mL 10 unit subcut QPM 02/18/23 03/22/23 subcutaneous solution (Lantus U-100 Insulin) Previous Rx's Medication Instructions Recorded blood sugar diagnostic #100 ea 10/20/22 blood-glucose meter #1 ea 10/20/22 lancets (Accu-Chek Softclix #100 ea 10/20/22 Lancets) pen needle, diabetic 32 gauge x #50 ea 01/11/2312/28 (Comfort EZ Pen Tunica) cholecalciferol (vitamin D3) 25 25 mcg PO DAILY #30 caps 01/25/23 mcg (1,000 unit) capsule blood-glucose sensor (Dexcom G7 #3 ea 03/07/23 Sensor device) hydrocodone 5 mg-acetaminophen 325 1 tab PO Q4-6H PRN pain #30 tabs 03/10/23 mg tablet naproxen 500 mg tablet 500 mg PO BID PRN pain 7 days #14 04/04/23 tabs Allergies Allergy/AdvReac Type Severity Reaction Status Date / Time No Known Allergies Allergy Verified 04/04/23 18:05 [No Known Allergies*] Review of Systems Review of Systems: Left shoulder pain Yes all other systems are reviewed and are negative PMF Past Medical History Medical History (Updated 04/05/23 @ 00:00 by John Reid) Cutaneous abscess of head excluding face Diabetes Elevated cholesterol Vitamin D deficiency Weight loss Surgical History (Updated 03/22/23 @ 13:17 by Tab Valle MD) H/O umbilical hernia repair Hx of colonoscopy Inguinal hernia Family History Family History Mother Asthma Diabetes Father Cancer Diabetes Social History Social History Housing: Apartment Are you a primary post acute care registered nurse to a significant other at home: Yes Do you presently have visiting nurse or other home services: No Alcohol intake: current Alcohol intake frequency: holidays/special occasions only Alcohol type: beer Patient Tobacco Use Status: Former Tobacco user Quit Date: 7 yrs ago Tobacco use type: Cigarette e-Cigarette/Vaping Use: Never Used Second Hand Smoke Exposure: No Substance Use Type: Marijuana Advance Directives: No Advance Directives Information Provided: No service: No Current occupational status: employed Current occupational exposures/hazards: No Cognitive needs: No Hearing needs: No Vision needs: Yes Physical Exam ED Vital Signs: Vital Signs - 24 hr 04/04/23 18:06 Temperature 97.9 F Pulse Rate 90 Respiratory Rate 16 Blood Pressure 144/99 H Pulse Oximetry 96 Oxygen Delivery Method Room Air BMI result Body Mass Index 28.9 Const General: cooperative, healthy appearing, comfortable, no acute distress, well developed, alert, awake and Physically active Orientation/consciousness: oriented to person, oriented to place, oriented to time and patient oriented x3 HENMT Head: Yes normal to inspection, Yes No palpable skull fracture present, Yes normocephalic, Yes atraumatic and No abrasion Ears: hearing grossly normal bilaterally, external ears normal, TM's normal bilaterally, TM normal on the right, TM normal on the left, EAC's normal, mastoids normal and no periauricular adenopathy Eyes General: appearance normal, both eyes and all related structures Neck Neck: Yes normal visual inspection, Yes full ROM, Yes no lymphadenopathy, Yes no meningeal signs, Yes trachea midline, Yes supple, No anterior neck swelling and No tender Chest Chest palpation & inspection: normal inspection of the chest and normal palpation of entire chest wall Resp Effort & Inspection: normal respiratory effort and able to speak in complete sentences Auscultation: clear to auscultation bilaterally Cardio Jugular venous distension: no JVD Heart sounds: S1 normal heart sound present and S2 normal heart sound present GI Inspection: Yes normal to inspection and No abdominal wall ecchymosis Palpation (GI): Soft to palpation, not firm, nontender, no guarding and not rigid General: No CVA tenderness and Yes no CVA tenderness Back/Spine/Pelvis Back: no CVA tenderness, No CVA tenderness and No back tenderness Skin General skin exam: no rashes or lesions noted, elasticity normal and turgor normal Neuro General: oriented to person, oriented to place, oriented to time, patient oriented x3, gait normal, tone normal, moves all extremities, Normal light touch and pain sensation, no meningeal signs, no focal motor deficits, CN's II-XI intact bilaterally and normal sensation to monofilament Extrem General: Yes normal to inspection and Yes full ROM Shoulder/upper arm images: 1. Positive for tenderness on palpation and positive for pain on range of motion. Motor/neuro/vascular exam of upper extremity intact. Negative for redness or ecchymosis. Negative for hotness or coldeness. Psych Appearance: grossly normal, well kempt and not disheveled Course Course Course Narrative: This is an RME: Additional HPI, ROS, PE not included below will be deferred to primary provider. 42-year-old male, with a hx of diabetes, presents emergency department with complaints left shoulder pain x5 days. Now having and tingling down into his left hand. No injury or trauma. No chest pain or shortness of breath. VSS. likely radiculopathy, but will obtain cardiac labs for further evaluation. Plan: Labs, EKG ordered. Medical Decision Making Medical Decision Making [facility] Narrative: 41-year-old male history of diabetes with left shoulder pain for the past 5 days without any trauma. Shoulder pain worse on movement with some tingling numbness in fingers. Patient denies any neck pain. Patient denies any chest pain. Due to history diabetes cardiac workup was done. Was sent for shoulder x-ray. 8:47pm: EKG negative stemi. Troponin negative. [place] xray normal. patient will be discharged. Differential Diagnosis Differential Diagnoses: The differential diagnosis associated with the presentation includes (Shoulder strain, [place], DVT, Cellulitis, Compartment syndrome, fracture, disclocaiton) Admission/Observation Consideration of admission/observation: Escalation of care including admission/observation considered Lab Data [facility] Lab Attestation statement: I reviewed the patient's lab results. 04/04/23 18:34 04/04/23 18:34 Labs: Lab Results 04/04/23 04/04/23 04/04/23 Range/Units 18:34 18:34 18:34 WBC 8.8 (4.8-10.8) X10*3/uL RBC 5.43 (4.60-5.80) X10*6/uL Hgb 15.0 (14.0-18.0) g/dl Hct 45.2 (42.0-52.0) % MCV 83.2 (80.0-98.0) fL MCH 27.6 (27.0-33.0) pg MCHC 33.2 (31.0-36.0) g/dl RDW 13.1 (11.0-16.0) % Plt Count 378 (160-400) X10*3/uL MPV 8.6 L (9.4-12.4) fL Immature Gran % (Auto) 0.3 (0.0-0.4) % Neut % (Auto) 52.9 (45-73) % Lymph % (Auto) 35.0 (20-40) % [place] % (Auto) 7.4 (2-11) % Eos % (Auto) 3.6 (0-4) % Baso % (Auto) 0.8 (0-2) % Lymph # (Auto) 3.1 (1.2-4.9) X10*3/uL [place] # (Auto) 0.7 (0.1-1.2) X10*3/uL Eos # (Auto) 0.3 (0.0-0.4) X10*3/uL Baso # (Auto) 0.1 (0.0-0.2) X10*3/uL Abs Immat Gran (auto) 0.03 (0.00-0.03) X10*3/uL Absolute Neuts (auto) 4.7 (2.0-8.3) x10*3/uL Absolute Nucleated RBC 0.000 (0.0-0.012) X10*3/uL Nucleated RBC % (auto) 0.0 (0.0-0.2) /100WBC Sodium 140 (135-145) mmol/L Potassium 4.3 (3.3-5.1) mmol/L Chloride 104 (96-108) mmol/L Carbon Dioxide 25 (22-29) mmol/L Anion Gap 15 (12-20) BUN 17 H (9-16) mg/dL Creatinine 0.97 (0.5-1.4) mg/dL Estim Creat Clear Calc 104.8 Estimated GFR > 60 Random Glucose 117 H (60-115) mg/dL Calcium 9.6 (8.4-10.2) mg/dL Total Bilirubin (0.0-1.0) mg/dL Direct Bilirubin (0.0-0.5) mg/dL AST (5-37) U/L ALT (0-40) U/L Alkaline Phosphatase (39-117) U/L Troponin I High Sens < 2.7 (<3.5-35.0) ng/L Total Protein (6.5-8.0) g/dL Albumin (3.5-5.0) g/dL 04/04/23 Range/Units 18:34 WBC (4.8-10.8) X10*3/uL RBC (4.60-5.80) X10*6/uL Hgb (14.0-18.0) g/dl Hct (42.0-52.0) % MCV (80.0-98.0) fL MCH (27.0-33.0) pg MCHC (31.0-36.0) g/dl RDW (11.0-16.0) % Plt Count (160-400) X10*3/uL MPV (9.4-12.4) fL Immature Gran % (Auto) (0.0-0.4) % Neut % (Auto) (45-73) % Lymph % (Auto) (20-40) % [place] % (Auto) (2-11) % Eos % (Auto) (0-4) % Baso % (Auto) (0-2) % Lymph # (Auto) (1.2-4.9) X10*3/uL [place] # (Auto) (0.1-1.2) X10*3/uL Eos # (Auto) (0.0-0.4) X10*3/uL Baso # (Auto) (0.0-0.2) X10*3/uL Abs Immat Gran (auto) (0.00-0.03) X10*3/uL Absolute Neuts (auto) (2.0-8.3) x10*3/uL Absolute Nucleated RBC (0.0-0.012) X10*3/uL Nucleated RBC % (auto) (0.0-0.2) /100WBC Sodium (135-145) mmol/L Potassium (3.3-5.1) mmol/L Chloride (96-108) mmol/L Carbon Dioxide (22-29) mmol/L Anion Gap (12-20) BUN (9-16) mg/dL Creatinine (0.5-1.4) mg/dL Estim Creat Clear Calc Estimated GFR Random Glucose (60-115) mg/dL Calcium (8.4-10.2) mg/dL Total Bilirubin 0.3 (0.0-1.0) mg/dL Direct Bilirubin 0.1 (0.0-0.5) mg/dL AST 15 (5-37) U/L ALT 21 (0-40) U/L Alkaline Phosphatase 64 (39-117) U/L Troponin I High Sens (<3.5-35.0) ng/L Total Protein 7.6 (6.5-8.0) g/dL Albumin 4.2 (3.5-5.0) g/dL Independent Interpretation I performed an independent interpretation of an: EKG (NOrmal sinus rhythm, VEnt rate 81, KS interval 126, QRS 84, and QTC 399. Negative STEMI) and Plain X-Ray Radiology Impression Discussion of test interpretation with radiology: I have reviewed the radiologist's reading. External Record Review External record reviewed: Other (Prior ED visit) Prescription Management I considered prescription management with: Pain Medication and Other (Steroid) Chronic Conditions Patient?s care impacted by: Diabetes Discharge Plan Discharge Clinical Impression: Left shoulder pain Patient Disposition: Home, Self-Care Instructions: Shoulder Pain (ED), Warm Compress or Soak (ED) Additional Instructions: Return to the ED for any swelling of left upper extremity, redness, blue black discoloration, paralysis, chest pain, shortness of breath, neck pain, facial droop, loss of vision, slurred speech, paralysis of extremities, or any other concerning symptoms. Please follow-up with your primary care provider for re-evaluation and possible MRI if shoulder pain does not improve. EKG and blood test came back negative for heart attack. Prescriptions: New naproxen 500 mg tablet 500 mg PO BID PRN (Reason: pain) 7 Days Qty: 14 0RF No Action cholecalciferol (vitamin D3) 25 mcg (1,000 unit) capsule 25 mcg PO DAILY Qty: 30 3RF (DME) Dexcom G7 Sensor Device See Rx Instructions .Route Qty: 3 5RF Rx Instructions: As directed change every 10 days (DME) blood-glucose meter Kit See Rx Instructions .Route Qty: 1 0RF Rx Instructions: As directed (DME) blood sugar diagnostic Strip See Rx Instructions .Route Qty: 100 0RF Rx Instructions: As directed (DME) lancets [Accu-Chek Softclix Lancets] Misc See Rx Instructions .Route Qty: 100 0RF Rx Instructions: As directed hydrocodone-acetaminophen 5-325 mg tablet 1 tab PO Q4-6H PRN (Reason: pain) Qty: 30 0RF Rx Instructions: Partial Fill upon patient request. (DME) pen needle, diabetic [Comfort EZ Pen Tunica] 32 gauge x 5/16 needle See Rx Instructions .Route Qty: 50 5RF Rx Instructions: As directed injects once a day metformin 500 mg tablet 500 mg PO BID atorvastatin 10 mg tablet 10 mg PO DAILY insulin glargine [Lantus U-100 Insulin] 100 unit/mL solution 10 unit subcut QPM Stand Alone Forms: Work/School Release Interventions: ED Discharge Assessment Last Done: 04/04/23 21:00 Discharge Date/Time: 04/04/23 21:02 Print Language: Venezuelan
--- NOTE | 2023-04-04 18:12 | ECG_ITS ---
Test Reason : finger numbness Blood Pressure : / mmHG Vent. Rate : 081 BPM Atrial Rate : 081 BPM P-R Int : 126 ms QRS Dur : 084 ms QT Int : 344 ms P-R-T Axes : 047 -12 031 degrees QTc Int : 399 ms Normal sinus rhythm Nonspecific T wave abnormality Abnormal ECG No previous ECGs available Referred By: Viky Sanford Electronically Signed By:SYED ESCALONA
[2023-04-04 18:40] LABS: MANUAL DIFF FLAG NO
[2023-04-04 18:43] LABS: Basophils Absolute Auto 0.1 X10*3/uL (0.0-0.2); Basophils Percent Auto 0.8 % (0-2); Eosinophils Absolute Auto 0.3 X10*3/uL (0.0-0.4); Eosinophils Percent Auto 3.6 % (0-4); Hematocrit 45.2 % (42.0-52.0); Imm Gran Abs Auto 0.03 X10*3/uL (0.00-0.03); Imm Gran Pct Auto 0.3 % (0.0-0.4); Lymphocytes Absolute Auto 3.1 X10*3/uL (1.2-4.9); Mean Corpuscular HGB Conc 33.2 g/dl (31.0-36.0); Mean Corpuscular Hemoglobin 27.6 pg (27.0-33.0); Mean Corpuscular Volume 83.2 fL (80.0-98.0); Mean Platelet Volume 8.6 fL (9.4-12.4); Monocytes Absolute Auto 0.7 X10*3/uL (0.1-1.2); Monocytes Percent Auto 7.4 % (2-11); Neutrophils Absolute Auto 4.7 x10*3/uL (2.0-8.3); Neutrophils Percent Auto 52.9 % (45-73); Platelet Count 378 X10*3/uL (160-400); Red Blood Count 5.43 X10*6/uL (4.60-5.80); Red Cell Distribution Width 13.1 % (11.0-16.0); White Blood Count 8.8 X10*3/uL (4.8-10.8)
[2023-04-04 19:03] LABS: Anion Gap 15 (12-20); Blood Urea Nitrogen 17 mg/dL (9-16); Calcium 9.6 mg/dL (8.4-10.2); Carbon Dioxide 25 mmol/L (22-29); Chloride 104 mmol/L (96-108); Creatinine Clr Calc Pharmacy 104.8; Estimated Glomerular Filt Rate > 60; Glucose Random 117 mg/dL (60-115); Potassium 4.3 mmol/L (3.3-5.1); Sodium 140 mmol/L (135-145)
[2023-04-04 19:06] LABS: Alanine Aminotransferase 21 U/L (0-40); Albumin Level 4.2 g/dL (3.5-5.0); Alkaline Phosphatase 64 U/L (39-117); Aspartate Amino Transferase 15 U/L (5-37); Bilirubin Direct 0.1 mg/dL (0.0-0.5); Bilirubin Total 0.3 mg/dL (0.0-1.0); Total Protein 7.6 g/dL (6.5-8.0)
[2023-04-04 19:21] LABS: Troponin-I High Sensitivity < 2.7 ng/L (<3.5-35.0)
== END 2023-04-04 21:02 | disposition home or self-care (01) ==
PROVIDERS: Physician Assistant Medical; Emergency Provider Emergency Medicine; PCP Internal Medicine
DX: M25.512 Pain in left shoulder (principal); R94.31 Abnormal electrocardiogram [ECG] [EKG]; R20.0 Anesthesia of skin; Z87.891 Personal history of nicotine dependence; Z79.899 Other long term (current) drug therapy
CPT/HCPCS: 36415; 73030; 80048; 80076; 84484; 85025; 93005; 99283

== ENCOUNTER 2023-04-14 10:43 | Outpatient (AMB) | payer OTHER, SELFPAY ==
--- NOTE | 2023-04-14 11:47 | MHC.AMDMED ---
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 Supply Coordinator Required: No Accompanied by: Self / Same As Patient Allergies No Known Allergies [No Known Allergies*] Allergy (Verified 04/04/23 18:05) HPI Comprehensive Diabetes Asmnt Most Recent Diabetes Results: Creatinine 0.97 mg/dL (0.5-1.4) 04/04/23 Blood Urea Nitrogen 17 mg/dL (9-16) H 04/04/23 Sodium 140 mmol/L (135-145) 04/04/23 Potassium 4.3 mmol/L (3.3-5.1) 04/04/23 Chloride 104 mmol/L (96-108) 04/04/23 Carbon Dioxide 25 mmol/L (22-29) 04/04/23 Calcium 9.6 mg/dL (8.4-10.2) 04/04/23 AST 15 U/L (5-37) 04/04/23 ALT 21 U/L (0-40) 04/04/23 Total Protein 7.6 g/dL (6.5-8.0) 04/04/23 Albumin 4.2 g/dL (3.5-5.0) 04/04/23 [facility] Medical History (Updated 04/05/23 @ 00:00 by John Reid) Cutaneous abscess of head excluding face Diabetes Elevated cholesterol Vitamin D deficiency Weight loss Surgical History (Updated 03/22/23 @ 13:17 by Tab Valle MD) H/O umbilical hernia repair Hx of colonoscopy Inguinal hernia Family History Mother Asthma Diabetes Father Cancer Diabetes Social History Housing: Apartment Are you a primary transitional care manager to a significant other at home: Yes Do you presently have visiting nurse or other home services: No Alcohol intake: current Alcohol intake frequency: holidays/special occasions only Alcohol type: beer Patient Tobacco Use Status: Former Tobacco user Quit Date: 7 yrs ago Tobacco use type: Cigarette e-Cigarette/Vaping Use: Never Used Second Hand Smoke Exposure: No Substance Use Type: Marijuana service: No Current occupational status: employed Current occupational exposures/hazards: No Cognitive needs: No Hearing needs: No Vision needs: Yes Assessment & Plan Assessment & Plan (1) Uncontrolled type 1 diabetes mellitus with hyperglycemia, with long-term current use of insulin: Code(s): E10.65 - Type 1 diabetes mellitus with hyperglycemia Plan: Learning objectives: The patient was provided with verbal and written education on the following topics as outlined below. The patient met all learning objectives and was able to verbalize understanding and provide teach back of education topics discussed . The patient was provided with the opportunity to ask questions and all questions were answered. Patient Assessment Patient questions/concerns, patient reports his insurance will not cover Dexcom G7 with 1 injection a day must be on MDI. Patient is newly diagnosed with SANDEE, is difficult to assess if patient is having postprandial hyperglycemia is patient is not testing after meals. Patient upcoming visit with Dr. Huang in June 2023, will have patient come back for additional Dexcom G7 samples in order to see if prandial insulin is recommended. What is Diabetes? Pathophysiology How the body produces and uses insulin Identify type of DM Risk factors Signs of Diabetes Brief overview of Diabetes Management Monitoring blood sugar Following a meal plan Regular exercise Maintaining a healthy weight Taking medication as needed Members of the care team (PCP, RN, MA, RD, CDE, land manager) Blood glucose monitoring When/how often to test Target blood sugar ranges Patient testing 1-4 times daily Fasting glucose range from 120 to 142 mg/dL Patient's glucose testing throughout the days sporadic, glucose levels range from 102-207 mg/dL Patient reports he does not generally test 2 hours post meal Introduction to Nutrition Importance of healthy diet in managing DM Diet is personalized to individual preference Review patient?s regular diet/food preferences Who prepares meals/does food shopping/ Dining out?/ Barriers? How diet effects glucose Eating 3 balanced meals a day with small, healthy snacks between meals Review food groups Carbohydrates: What is a carbohydrate/Which food/food groups are considered carbohydrates Effect of carbohydrates on blood glucose Portion sizes Reading food labels Basic carb counting (if applicable per nursing assessment) Plate method Meal planning Recommendations: Follow plate method, consistent carbs and read nutritional labels. Smart Goal: Patient will test glucose levels prior to meals, and then 2 hours post meal Educational Materials: The patient was provided with the following written educational materials: Planning Healthy Meals Handout Patient Response to instructions: Comprehension of Instructions: Fair Readiness to make changes: Contemplation How confident they feel about making changes: Fair Patient Instructions: Include regular daily activity. ADA recommends 30 minutes of exercise 5 days a week. Weight loss talk to PCP or Supervisor [employer] before starting new plan. Test blood sugar as directed; Fasting and 2hpp largest meal. Watch trends in results. Utilize results and to assess how food, physical activity and medications affect blood sugar results. Bring glucometer or CGM to next visit. Be knowledgeable about diabetes medication, its action, side effects, efficacy, toxicity, prescribed dosage, appropriate timing and frequency of administration, effect of missed and delayed doses and instructions for storage, travel and safety. Coding Level of Care Code Est Pt Level 1 (42777) Diagnoses Uncontrolled type 1 diabetes mellitus with hyperglycemia, with long-term current use of insulin E10.65
== END 2023-04-14 11:56 | disposition home or self-care (01) ==
PROVIDERS: PCP Internal Medicine; Visit Provider Registered Nurse Diabetes Educator
DX: E10.65 Type 1 diabetes mellitus with hyperglycemia (principal)

== ENCOUNTER → 2023-04-14 10:43 | Outpatient (BNVA) | payer OTHER, SELFPAY | PROVIDERS: PCP Internal Medicine; Visit Provider Registered Nurse Diabetes Educator | DX: E10.65 Type 1 diabetes mellitus with hyperglycemia (principal) | CPT/HCPCS: 99211 ==

== ENCOUNTER 2023-04-20 15:44 | Outpatient (AMB) | payer OTHER, SELFPAY ==
[2023-04-20 15:54] VITALS: BP 152/102; PULSE 106; O2SAT 98; BMI 30.9
--- NOTE | 2023-04-20 15:54 | MHC.PC.OV ---
Vital Signs 04/20/23 15:54 04/20/23 16:31 Height 5 ft 8 in Weight 203 lb 2 oz BMI 30.9 BP 152/102 H 130/90 H Blood Pressure Location Lt brachial Position Sitting Pulse 106 H Pulse Source Pulse Oximeter Pulse Oximetry (%) 98 Oxygen Delivery Method Room Air Intake Visit Reasons: pain and numbness in both hands Intake Note: Pt is here for left hand numbness and sharp pain mid shoulder and back side for the past two weeks. 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 Accompanied by: Self / Same As Patient Allergies No Known Allergies [No Known Allergies*] Allergy (Verified 04/20/23 16:17) Medication List - Last Reconciled 04/20/23 by Hamilton Gilliam PA-C atorvastatin 10 mg PO DAILY blood sugar diagnostic As directed blood-glucose meter As directed blood-glucose sensor (Dexcom G7 Sensor device) As directed change every 10 days cholecalciferol (vitamin D3) 25 mcg PO DAILY insulin glargine (Lantus U-100 Insulin) 10 units subcut QPM lancets (Accu-Chek Softclix Lancets) As directed naproxen 500 mg PO BID PRN 7 days pen needle, diabetic (Comfort EZ Pen [place]) As directed injects once a day Tobacco use date assessed: 02/04/23 Dental Screening Dental Screen Date: 04/20/23 Did you have a dental visit in the last 12 months?: Yes Did you have a dental problem in the last 6 months where you did not have access to dental care?: No Was dental information given to patient?: Patient has dentist HPI pain and numbness in both hands HPI Details Patient is a 42-year-old male here today for problem visit. This is the 1st time I am meeting this 42-year-old male with a past medical history significant for type 1 diabetes and hyperlipidemia. He reports over the last 2 weeks of left upper arm knumbess and tingling. Has been seen local ER was sent for x-rays of his left shoulder which were essentially normal. Has used an [id number]-[id number] a analgesics and muscle relaxers without much relief. He reports he underwent hernia surgery recently on his abdomen and has been lying on his left side which he feels is the cause of his left upper extremity neuropathic symptoms. ? Pinched nerve [facility] Medical History (Updated 04/20/23 @ 16:24 by Hamilton Gilliam PA-C) Elevated cholesterol Cutaneous abscess of head excluding face Diabetes Vitamin D deficiency Weight loss Surgical History Hx of colonoscopy Inguinal hernia H/O umbilical hernia repair Family History Mother Asthma Diabetes Father Cancer Diabetes Social History Housing: Apartment Are you a primary urgent care technician to a significant other at home: Yes Do you presently have visiting nurse or other home services: No Alcohol intake: current Alcohol intake frequency: holidays/special occasions only Alcohol type: beer Patient Tobacco Use Status: Former Tobacco user Quit Date: 7 yrs ago Tobacco use type: Cigarette e-Cigarette/Vaping Use: Never Used Second Hand Smoke Exposure: No Substance Use Type: Marijuana service: No Current occupational status: employed Current occupational exposures/hazards: No Cognitive needs: No Hearing needs: No Vision needs: Yes Questionnaire Thrive Questionnaire Date Thrive assessed: 11/04/22 MARII-7 AMB Questionnaire MARII-7 Date MARII - 7 assessed: 11/04/22 Source: Developed by Drs. Joaquin Arnold, Catherine Antnoio, Humza Adams and colleagues, with an educational juan from [employer]. Review of Systems Const Denies headache(s) Eyes Denies loss of vision ENT Denies vertigo, Denies dizziness, Denies headache(s) and Denies sore throat Card Denies chest pain, Denies leg edema and Denies lightheadedness Resp Denies cough, Denies hemoptysis and Denies wheezing GI Denies abdominal pain, Denies melena, Denies constipation, Denies diarrhea and Denies vomiting Denies dysuria, Denies urinary frequency and Denies urinary urgency Musc Denies arthralgias, Denies joint swelling, Denies numbness and Denies tingling Neuro Denies Abnormal speech present, Denies behavioral changes, Denies vertigo, Denies dizziness, Denies headache(s), Denies loss of vision, Denies memory loss, Denies numbness and Denies tingling Psych Denies anxiety, Denies behavioral changes, Denies depression, Denies memory loss and Denies panic attacks Ned/Lymph Denies easy bleeding and Denies easy bruising Aller/Immun Denies wheezing Physical exam (Primary Care) Vital Signs: Last Vital Signs Pulse 106 H 04/20/23 15:54 BP 130/90 H 04/20/23 16:31 Pulse Ox 98 04/20/23 15:54 Oxygen Delivery Method Room Air 04/20/23 15:54 BMI result Body Mass Index 30.9 Tobacco/Smoking Status: Tobacco use Status Tobacco use date assessed 02/04/23 04/20/23 16:01 Patient Tobacco Use Status Former Tobacco user 04/20/23 16:01 Tobacco use type Cigarette 04/20/23 16:01 e-Cigarette/Vaping Use Never Used 04/20/23 16:01 Thrive Assessment: Date of Thrive Assessment Date Thrive assessed 11/04/22 04/20/23 16:01 Const General: healthy appearing, no acute distress, alert and awake Nutritional Appearance: well nourished Orientation/consciousness: oriented to person, oriented to place and oriented to time HENMT Ears: TM's normal bilaterally General nose exam: Normal nasal mucous membranes and turbinates present Eyes Conjunctivae: conjunctivae normal Sclerae: sclerae normal Pupils: Equal, round and reactive pupils present Neck Neck: Yes no lymphadenopathy and Yes no JVD Thyroid: Thyroid normal Carotids: no bruits Resp Effort & Inspection: normal respiratory effort and not tachypneic Auscultation: no crackles, no rales, no rhonchi and no wheezes Cardio Rate: regular rate Rhythm: regular rhythm Heart sounds: no murmurs and normal S1 and S2 GI Palpation (GI): Soft to palpation, nontender, no hepatomegaly and no splenomegaly Auscultation: normal bowel sounds Skin General skin exam: no rashes or lesions noted and dry skin Neuro General: oriented to person, oriented to place and oriented to time Cranial nerves: Yes Equal, round and reactive pupils present Speech: No Abnormal speech present Gait exam (Neuro): Normal gait present Motor exam (neuro): no tremor noted Extrem Other: LEFT UPPER EXTREMITY: 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 PULSES AND CAP REFILL 2+ OVER LEFT UPPER EXTREMITY. Right upper extremity: full ROM Left upper extremity: full ROM Right lower extremity: full ROM; no edema Left lower extremity: full ROM; no edema Psych Mental Status: mental status grossly normal Speech and movement: Normal speech and movement present Affect: normal affect Attitude: cooperative Thought process: Normal thought process present Results AMB Hemoglobin A1c AMB Hemoglobin A1c 6.4 % Last Edit by CAREY Winston on 04/20/23 16:05 Results Reviewed Results Reviewed: Laboratory Last Values Hgb A1c (Clinic) 6.4 % (4.0-6.0) H 04/20/23 15:52 Assessment and Plan Assessment & Plan (1) Cervical radiculopathy: Code(s): M54.12 - Radiculopathy, cervical region Plan: Patient's signs and symptoms most consistent with a nerve entrapment. Unclear if coming from shoulder verses cervical spine. Will try for cervical spine imaging and physical therapy to help release nerve. Will trial prednisone taper Orders: Orders AMB Hemoglobin A1c 04/20/23 E11.9 - Type 2 diabetes mellitus without complications XR cervical spine 3V 04/20/23 M54.12 - Radiculopathy, cervical region PT Evaluation and Treatment 04/20/23 M54.12 - Radiculopathy, cervical region MR cervical spine wo con 04/20/23 M54.12 - Radiculopathy, cervical region Medications: New prednisone 10 mg PO DAILY 9 days 18 tabs 0RF M54.12 - Radiculopathy, cervical region Coding Level of Care Code Est Pt Level 4 (59031) Diagnoses Cervical radiculopathy M54.12
[2023-04-20 16:31] VITALS: BP 130/90
== END 2023-04-20 16:34 | disposition home or self-care (01) ==
PROVIDERS: PCP Internal Medicine; Visit Provider Physician Assistant
DX: E11.9 Type 2 diabetes mellitus without complications (principal)
CPT/HCPCS: 83036; 99214

== ENCOUNTER 2023-05-09 08:18 | Outpatient (AMB) | payer OTHER, SELFPAY ==
[2023-05-09 08:42] VITALS: BP 128/78; PULSE 77; O2SAT 97; BMI 31.9
--- NOTE | 2023-05-09 08:42 | MHC.PC.OV ---
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 Allergies No Known Allergies [No Known Allergies*] Allergy (Verified 05/09/23 08:52) Medication List - Last Reconciled 05/09/23 by SAHRA Middleton atorvastatin 10 mg PO DAILY blood sugar diagnostic As directed blood-glucose meter As directed blood-glucose sensor (DexCounsyl G7 Sensor device) As directed change every 10 days cholecalciferol (vitamin D3) 25 mcg PO DAILY insulin glargine (Lantus U-100 Insulin) 10 units subcut QPM lancets (Accu-Chek Softclix Lancets) As directed naproxen 500 mg PO BID PRN 7 days pen needle, diabetic (Comfort EZ Pen [place]) As directed injects once a day prednisone 10 mg PO DAILY 9 days Tobacco use date assessed: 02/04/23 Dental Screening Dental Screen Date: 05/09/23 Did you have a dental visit in the last 12 months?: No Did you have a dental problem in the last 6 months where you did not have access to dental care?: No Was dental information given to patient?: Patient has dentist HPI HPI Comments History of Present Illness Details 42-year-old male past medical history significant for type 2 diabetes mellitus, vitamin-D deficiency and hyperlipidemia. Patient presents today for follow-up exam. Hemoglobin A1c in January 10.6% patient following with endocrinology patient was previously on lantus 20units and metformin however he reports was have episodes of hypoglycemia while sleeping on dexcom reader 40's-60. metformin was discontinued and Lantus has been decreased to 5 units at bedtime. Patient's hemoglobin A1c today 6.4% this month. Patient's LDL 138, will start patient on atorvastatin 10 mg daily her LDL goal less than 100, patient reminded to get previously ordered fasting labs completed. Patient had right inguinal hernia repair completed in March by Dr. Valle. [facility] Medical History Elevated cholesterol Cutaneous abscess of head excluding face Diabetes Vitamin D deficiency Weight loss Surgical History Hx of colonoscopy Inguinal hernia H/O umbilical hernia repair Family History Mother Asthma Diabetes Father Cancer Diabetes Social History Housing: Apartment Are you a primary care coordination manager to a significant other at home: Yes Do you presently have visiting nurse or other home services: No Alcohol intake: current Alcohol intake frequency: holidays/special occasions only Alcohol type: beer Patient Tobacco Use Status: Former Tobacco user Quit Date: 7 yrs ago Tobacco use type: Cigarette e-Cigarette/Vaping Use: Never Used Second Hand Smoke Exposure: No Substance Use Type: Marijuana service: No Current occupational status: employed Current occupational exposures/hazards: No Cognitive needs: No Hearing needs: No Vision needs: Yes Questionnaire PHQ-9 Over the last 2 weeks, how often have you been bothered by any of the following problems? 1. Little interest or pleasure in doing things: not at all 2. Feeling down, depressed, or hopeless: not at all 3. Trouble falling or staying asleep, or sleeping too much: not at all 4. Feeling tired or having little energy: not at all 5. Poor appetite or overeating: not at all 6. Feeling bad about yourself - or that you are a failure or have let yourself or your family down: not at all 7. Trouble concentrating on things, such as reading the newspaper or watching television: not at all 8. Moving or speaking so slowly that other people could have noticed. Or the opposite - being so fidgety or restless that you have been moving around a lot more than usual: not at all 9. Thoughts that you would be better off or of hurting yourself in some way: not at all Total score: 0 Depression Screening Interpretation: Negative [id number] - PHQ-9 Billing: Yes Source: Developed by Drs. Joaquin Arnold, Catherine Antonio, Humza Adams and colleagues, with an educational juan from [employer]. Thrive Questionnaire Date Thrive assessed: 11/04/22 AUDIT C Alcohol Use Questionnaire (AUDIT-C) 1. How often do you have a drink containing alcohol?: Never Total Score: 0 MARII-7 AMB Questionnaire MARII-7 Date MARII - 7 assessed: 11/04/22 Source: Developed by Drs. Joaquin Arnold, Catherine Antonio, Humza Adams and colleagues, with an educational juan from [employer]. Review of Systems Const Denies chills, Denies fatigue, Denies fever(s) and Denies poor appetite Eyes Denies no additional complaints ENT Reports Normal hearing present Card Denies chest pain, Denies syncope, Denies rapid heart rate and Denies dyspnea Resp Denies cough and Denies dyspnea GI Denies change in stool character, Denies constipation, Denies diarrhea, Denies nausea and Denies vomiting Denies dysuria, Denies urinary frequency and Denies urinary urgency Neuro Reports Normal hearing present, Denies confusion and Denies syncope Psych Denies confusion Endo Denies fatigue Physical exam (Primary Care) Vital Signs: Last Vital Signs Pulse 77 05/09/23 08:42 BP 128/78 05/09/23 08:42 Pulse Ox 97 05/09/23 08:42 Oxygen Delivery Method Room Air 05/09/23 08:42 BMI result Body Mass Index 31.9 Tobacco/Smoking Status: Tobacco use Status Tobacco use date assessed 02/04/23 05/09/23 08:44 Patient Tobacco Use Status Former Tobacco user 05/09/23 08:44 Tobacco use type Cigarette 05/09/23 08:44 e-Cigarette/Vaping Use Never Used 05/09/23 08:44 PHQ-9: PHQ-9 Score PHQ-9: Total score 0 05/09/23 08:51 Depression Screening Interpretation: Negative Thrive Assessment: Date of Thrive Assessment Date Thrive assessed 11/04/22 05/09/23 08:44 Const General: No confusion Orientation/consciousness: No confusion HENMT Head: Yes normocephalic and Yes atraumatic Eyes Conjunctivae: conjunctivae normal Chest Chest palpation & inspection: normal inspection of the chest Resp Effort & Inspection: normal respiratory effort Auscultation: clear to auscultation bilaterally, no crackles, no rhonchi and no wheezes Cardio Rate: regular rate Rhythm: regular rhythm Heart sounds: S1 normal heart sound present and S2 normal heart sound present GI Inspection: Yes normal to inspection Neuro General: No confusion Cranial nerves: Yes Normal hearing present Extrem General: No edema Assessment and Plan Assessment & Plan (1) Uncontrolled type 1 diabetes mellitus with hyperglycemia, with long-term current use of insulin: Code(s): E10.65 - Type 1 diabetes mellitus with hyperglycemia Plan: Continue on Lantus 5 units at bedtime. Continue to follow with Endocrinology. HGB A1c 04/20/23: 6.4% ?Patient educated to decrease the amount of carbohydrate intake such as pasta, bread, rice and potatoes are all sugar in addition to the sweet stuff. Remember that fruits are good but they also have sugar. (2) Hyperlipidemia: Code(s): E78.5 - Hyperlipidemia, unspecified Plan: Continue on atorvastatin 10mg daily . ?Avoid fried foods, chicken skin, eggs, butter,margarine, pastries and?? red meat. Reminded to get previously ordered fasting labs completed. (3) Cervical radiculopathy: Code(s): M54.12 - Radiculopathy, cervical region Plan: Patient continue to have neck pain and numbness in left ring and pinky finger, MRI C-spine previously ordered, patient states waiting shoe salesperson for appointment. Patient sent refill on naproxene as needed, advised to take with food to prevent GI upset. Medications: Refilled naproxen 500 mg PO BID 7 days PRN 14 tabs 0RF pain Coding Level of Care Code Est Pt Level 3 (00622) Diagnoses Uncontrolled type 1 diabetes mellitus with hyperglycemia, with long-term current use of insulin E10.65 Hyperlipidemia E78.5 Cervical radiculopathy M54.12
== END 2023-05-09 09:01 | disposition home or self-care (01) ==
PROVIDERS: PCP Internal Medicine; Visit Provider Nurse Practitioner Family
DX: E10.65 Type 1 diabetes mellitus with hyperglycemia (principal); E78.5 Hyperlipidemia, unspecified; M54.12 Radiculopathy, cervical region
CPT/HCPCS: 99213

== ENCOUNTER 2023-06-21 13:17 | Outpatient (AMB) | payer OTHER, SELFPAY ==
--- NOTE | 2023-06-21 13:24 | MHC.OFFVIS ---
Intake Vital Signs 06/21/23 13:25 Height 5 ft 8 in Weight 224 lb 3.362 oz BMI 34.1 BP 116/88 Blood Pressure Location Lt brachial Position Sitting Pulse 104 H Pulse Source Pulse Oximeter Intake Visit Reasons: dm Intake Note: Patient present today to follow up on Type 1 Diabetes Mellitus. Last Diabetic Eye exam: 09/2022 Last Podiatry Visit: None Random Glucose: 196mg/dl HgA1C: 6.4% 04/20/2023 Office Assistant Required: No Accompanied by: Spouse Allergies No Known Allergies [No Known Allergies*] Allergy (Verified 06/21/23 13:35) HPI HPI Comments History of Present Illness Details 43 YO M who is seen in consultation for T1DM at the request of PCP. Initially diagnosed with T1DM in 3 mos- never saw endo before . Was initially started on treatment with metformin . Current regimen lantus 8 units . Micha download shows the sensors active 71% of the time. Average glucose is 148 with standard deviation of 29. 83% range with 70% hyperglycemia and no hypoglycemia Avg glucose is 181 . Variability of 54 The patient's blood sugars were in target 52% of the time, above target 48% of the time, and below target 0% of the time Family history of T2DM no -son Type 1 DM . Has eyes checked yearly, last eye exam Sep 2022 , denies retinopathy. Denies neuropathy, Not sees podiatry. Denies nephropathy, Not on MARY/ARB. Has HLD, Not on statin. . Denies CAD. Not Had diabetes education. [facility] Medical History Elevated cholesterol Cutaneous abscess of head excluding face Diabetes Vitamin D deficiency Weight loss Surgical History Hx of colonoscopy Inguinal hernia H/O umbilical hernia repair Family History Mother Asthma Diabetes Father Cancer Diabetes Social History Housing: Apartment Are you a primary foster care worker to a significant other at home: Yes Do you presently have visiting nurse or other home services: No Alcohol intake: current Alcohol intake frequency: holidays/special occasions only Alcohol type: beer Patient Tobacco Use Status: Former Tobacco user Quit Date: 7 yrs ago Tobacco use type: Cigarette e-Cigarette/Vaping Use: Never Used Second Hand Smoke Exposure: No Substance Use Type: Marijuana service: No Current occupational status: employed Current occupational exposures/hazards: No Cognitive needs: No Hearing needs: No Vision needs: Yes Physical Exam Vital Signs: Last Vital Signs Pulse 104 H 06/21/23 13:25 BP 116/88 06/21/23 13:25 BMI result Body Mass Index 34.1 Absence of Cushingoid features. Absence of acromegalic features. Neck exam reveals nl size thyroid about 15 gms. No thyroid nodules palpable. No carotid bruits present. Lungs CTA. Heart S1 S2, Reg R/R. No M/R/ G. Skin exam reveals absence of vitiligo or acanthosis nigricans. Abdominal exam reveals Soft NT/ND with NA BS. No organomegaly present. Neck Other: . Extrem Other: Visual exam of foot performed. No ulcerations or open lesions. No onchomycosis, no callouses.Pulses 2 + distally Sensation intact to monofilament exam. Vibratory sensation sensed is intact with 128 Hz tuning fork Results Reviewed Results Reviewed: 06/21/23 13:33 Glucose, Whole Blood Routine Laboratory Last Values Glucose (Clinic) 196 mg/dL (60-115) H 06/21/23 13:33 Assessment & Plan Assessment & Plan (1) Diabetes: Code(s): E11.9 - Type 2 diabetes mellitus without complications Plan: This is a 42-year-old male with a history of diabetes Type 1 being treated basal insulin with excellent glycemic control and no known microvascular or macrovascular complications. Plan is to continue the basal insulin but to reduce Lantus by 2 units if patient experiences hypoglycemia overnight. Also prescribed Humalog 5 units prior to meals for correction. Question is whether patient would qualify for TZield at this early stage of type 1 diabetes. Also advised patient and to get children tested as he has a son with type 1 diabetes. Also asked patient to repeat lipid profile ordered by primary care per Medications: New insulin lispro (Humalog KwikPen (U-100) Insulin) 5 units (0.05 mL) subcut TID 15 mL 5RF Coding Level of Care Code Est Pt Level 4 (04564) Diagnoses Diabetes E11.9
[2023-06-21 13:25] VITALS: BP 116/88; PULSE 104; BMI 34.1
[2023-06-21 13:37] LABS: Glucose, Whole Blood 196 mg/dL (60-115)
== END 2023-06-21 13:56 | disposition home or self-care (01) ==
PROVIDERS: PCP Internal Medicine; Visit Provider Internal Medicine Endocrinology, Diabetes & Metabolism
DX: E11.9 Type 2 diabetes mellitus without complications (principal)
CPT/HCPCS: 99214

== ENCOUNTER → 2023-06-21 13:17 | Outpatient (BNVA) | payer OTHER, SELFPAY | PROVIDERS: PCP Internal Medicine; Visit Provider Internal Medicine Endocrinology, Diabetes & Metabolism | DX: E11.9 Type 2 diabetes mellitus without complications (principal) | CPT/HCPCS: 82947; 99212 ==